=== PATIENT | male | born 1945 | race Caucasian/White ===

== ENCOUNTER 2020-01-20 19:44 | Inpatient (IN) | payer MEDICARE, OTHER ==
[~2020-01-20] VITALS: Ht 172.7 cm; Wt 100.4 kg
[2020-01-21] MEDS ORDERED: PIPERACILLIN-TAZOB 3.375GM 100 ML IV ONE (00:30)
[2020-01-21 01:00] LABS: Eosinophils # (auto) 0.1 10 ^3/uL (0-0.8); Lymphocytes # (auto) 1.5 10 ^3/uL (0.4-5.4); Mean Corpuscular Hemoglobin 29.3 pg (28.0-32.0)
[2020-01-21 01:05] LABS: Basophils # (auto) 0.2 10 ^3/uL (0-0.2); Basophils % (auto) 1.7 % (0.0-2.0); Eosinophils % (auto) 0.9 % (0.0-7.0); Hematocrit 41.7 % (41.0-53.0); Hemoglobin 13.6 g/dL (13.5-17.5); Lymphocytes % (auto) 13.7 % (10.0-50.0); Mean Corpuscular Hgb Conc. 32.6 g/dL (32.0-36.0); Mean Corpuscular Volume 89.8 fL (80.0-100.0); Monocytes # (auto) 0.8 10 ^3/uL (0-1.3); Monocytes % (auto) 6.8 % (0.0-12.0); Neutrophils # (auto) 8.6 10 ^3/uL (1.6-8.6); Neutrophils % (auto) 76.9 % (37.0-80.0); Platelet Count (auto) 110 10^3/uL (140-450); Red Blood Cells 4.64 10^6/uL (4.5-5.90); Red Cell Distribution Width 14.7 % (11.8-14.3); White Blood Cell 11.2 10^3/uL (4.4-10.8)
[2020-01-21 01:16] LABS: Albumin 3.4 g/dL (3.4-5.0); Calcium 9.2 mg/dL (8.5-10.1); Potassium 4.2 mmol/L (3.5-5.1)
[2020-01-21 01:22] LABS: BUN/Creatinine Ratio 14.2; Bilirubin, Total 0.6 mg/dL (0.2-1.0); Total Protein 8.3 g/dL (6.4-8.2)
[2020-01-21 01:43] LABS: INR 1.13 (0.9-1.15); Partial Thromboplastin Time 31.1 sec (23.64-32.05)
[2020-01-21] MEDS ORDERED: HYDROcodone-ACET 5/325MG TAB PO PRN (03:00)
[2020-01-21] MEDS ORDERED: ONDANSETRON HCL 4 MG/2 ML VIAL IV PRN (03:00)
[2020-01-21] MEDS ORDERED: DOCUSATE SOD 100 MG CAP PO PRN (03:00)
[2020-01-21] MEDS ORDERED: ACETAMINOPHEN 325 MG TAB PO PRN (03:00)
[2020-01-21] MEDS ORDERED: DEXTROSE (50%) 50ML SYRG IV PRN (03:00)
[2020-01-21] MEDS ORDERED: MORPHINE SULF INJ 2 MG/ML SYRINGE 1ML IV PRN (03:00)
[2020-01-21] MEDS: ACCU-CHEK COMFORT CURVE STRIP VI SCH ×6 (04:00→23:37)
[2020-01-21] MEDS: InsuLIN REG 1unit/0.01ml Soln (100units/ml) SC SCH ×6 (04:00→23:37)
--- NOTE | 2020-01-21 04:00 | NUR ---
MS admit from ER EMERSON RYDER Whit admitted to tele/MS. No SBAR received. Patient oriented to Michelle Marrero, RN primary RN, unit, room, bed, and unit policies regarding patient care and visiting hours. Patient weighed by bedscale and encouraged to call if they need something. All questions and concerns addressed, patient verbalized understanding. Pt. reports no pain at this time.
[2020-01-21] MEDS ORDERED: METF500S PO (04:56)
[2020-01-21] MEDS ORDERED: ATOR20TA PO (04:56)
[2020-01-21 05:00] VITALS: BP 139/73
[2020-01-21] MEDS: SODIUM CHLORIDE 0.9% 1,000 ML IV SCH ×2 (05:07→20:49)
[2020-01-21] MEDS: CLINDAMYCIN 600MG IV 50 ML IV SCH ×4 (05:08→23:36)
--- NOTE | 2020-01-21 05:17 | NUR ---
Med Rec Patient verbalized that he takes a medication for high blood pressure but he does not remember the name and dose of medication.
[2020-01-21] MEDS ORDERED: PNEUMOCOCCAL VACC POLYS 25 MCG/0.5 ML VIAL IM ONE (05:30)
[2020-01-21 08:00] VITALS: BP 133/61
[2020-01-21 09:00] VITALS: BP 133/61
--- NOTE | 2020-01-21 10:19 | NUR ---
DR. ISRAEL AT BEDSIDE. POC DISCUSSED WITH PT: VASC ARTERIAL ROMERO COMPLETE, CT RIGHT FOOT, PODIATRY CONSULT, DIEGO. PT VERBALIZED AGREEING WITH POC.
[2020-01-21] MEDS ORDERED: VANCOMYCIN 1GM/250ML 250 ML IV ONE (10:30)
[2020-01-21 10:53] LABS: Basophils # (auto) 0.1 10 ^3/uL (0-0.2); Eosinophils # (auto) 0.1 10 ^3/uL (0-0.8); Eosinophils % (auto) 0.8 % (0.0-7.0); Hemoglobin 12.9 g/dL (13.5-17.5); Lymphocytes # (auto) 0.9 10 ^3/uL (0.4-5.4); Lymphocytes % (auto) 14.1 % (10.0-50.0); Mean Corpuscular Hemoglobin 29.5 pg (28.0-32.0); Mean Corpuscular Hgb Conc. 32.9 g/dL (32.0-36.0); Mean Corpuscular Volume 89.5 fL (80.0-100.0); Monocytes # (auto) 0.6 10 ^3/uL (0-1.3); Monocytes % (auto) 8.8 % (0.0-12.0); Neutrophils # (auto) 4.8 10 ^3/uL (1.6-8.6); Neutrophils % (auto) 75.3 % (37.0-80.0); Nucleated Red Blood Cells % 0.1 %; Platelet Count (auto) 92 10^3/uL (140-450); Red Blood Cells 4.36 10^6/uL (4.5-5.90); Red Cell Distribution Width 14.6 % (11.8-14.3); White Blood Cell 6.4 10^3/uL (4.4-10.8)
[2020-01-21 11:19] LABS: Calcium 9.2 mg/dL (8.5-10.1); Potassium 4.3 mmol/L (3.5-5.1)
[2020-01-21 11:28] LABS: BUN/Creatinine Ratio 14.4
[2020-01-21] MEDS: LISINOPRIL 20 MG TAB PO SCH (11:35)
[2020-01-21 13:00] VITALS: BP 108/53
[2020-01-21] MEDS: GABAPENTIN 300 MG CAP PO SCH ×2 (16:33→21:18)
[2020-01-21 17:00] VITALS: BP 110/57
[2020-01-21] MEDS: ATORVASTATIN 20 MG TAB PO SCH (17:43)
--- NOTE | 2020-01-21 19:30 | NUR ---
assumed care, pt. awake, with redness and swelling on rt. lower extremity, no c/o pain, no sob.
[2020-01-21 22:00] VITALS: BP 110/55
--- NOTE | 2020-01-21 23:16 | NUR ---
paged hospitalist re: pt. d-dimer positive, called back no order made
[2020-01-22] MEDS: VANCOMYCIN 1GM/250ML 250 ML IV SCH ×2 (03:57→21:48)
[2020-01-22] MEDS: ACCU-CHEK COMFORT CURVE STRIP VI SCH ×6 (04:11→23:57)
[2020-01-22] MEDS: InsuLIN REG 1unit/0.01ml Soln (100units/ml) SC SCH ×6 (04:11→23:57)
[2020-01-22 05:00] VITALS: BP 115/60
[2020-01-22] MEDS: GABAPENTIN 300 MG CAP PO SCH ×3 (05:32→21:09)
[2020-01-22] MEDS: CLINDAMYCIN 600MG IV 50 ML IV SCH ×4 (05:32→23:33)
[2020-01-22 06:36] LABS: Basophils # (auto) 0 10 ^3/uL (0-0.2); Basophils % (auto) 0.5 % (0.0-2.0); Eosinophils # (auto) 0.1 10 ^3/uL (0-0.8); Eosinophils % (auto) 1.3 % (0.0-7.0); Hematocrit 35.4 % (41.0-53.0); Hemoglobin 11.7 g/dL (13.5-17.5); Lymphocytes % (auto) 16.4 % (10.0-50.0); Mean Corpuscular Hemoglobin 29.4 pg (28.0-32.0); Mean Corpuscular Volume 89.3 fL (80.0-100.0); Monocytes # (auto) 0.6 10 ^3/uL (0-1.3); Monocytes % (auto) 9.6 % (0.0-12.0); Neutrophils # (auto) 4.5 10 ^3/uL (1.6-8.6); Neutrophils % (auto) 72.2 % (37.0-80.0); Platelet Count (auto) 90 10^3/uL (140-450); Red Blood Cells 3.97 10^6/uL (4.5-5.90); Red Cell Distribution Width 14.3 % (11.8-14.3); White Blood Cell 6.2 10^3/uL (4.4-10.8)
--- NOTE | 2020-01-22 07:30 | NUR ---
Opening Shift Note Assumed patient care from [facility] RNClaire. Patient currently resting in bed with eyes closed. Respirations even and unlabored, no signs of distress noted at this time. Safety precautions in place, call light within reach. Will continue to monitor.
--- NOTE | 2020-01-22 08:55 | NUR ---
ASSUMED CARE ASSUMED CARE OF PATIENT FROM OSCAR GALLARDO. PATIENT AWAKE, ALERT, AND ORIENTED. NO S/S OF DISTRESS, SOB, NO C/O PAIN. INSTRUCTED ON POC. BED IN LOWEST/LOCKED POSITION, BED RAILS UP X2, CALL LIGHT WITHIN REACH. WILL CONTINUE TO MONITOR
[2020-01-22 09:00] VITALS: BP 128/63
--- NOTE | 2020-01-22 09:00 | NUR ---
Report Endorsed care to OSCAR Waterman.
[2020-01-22] MEDS: LISINOPRIL 20 MG TAB PO SCH (09:43)
[2020-01-22] MEDS: SODIUM CHLORIDE 0.9% 1,000 ML IV SCH ×3 (09:43→22:31)
--- NOTE | 2020-01-22 10:20 | NUR ---
MD ROUNDS DR Silvano ISRAEL AT BEDSIDE DISCUSSING POC WITH PATIENT. NEW ORDERS RECEIVED/WILL CARRY OUT. WILL CONTINUE TO MONITOR
--- NOTE | 2020-01-22 10:45 | NUR ---
MD ROUNDS DR SANCHEZ AT BEDSIDE DISCUSSING POC WITH PATIENT. NO NEW ORDERS. DR SANCHEZ AWAITING DIAGNOSTIC RESULTS. WILL CONTINUE TO MONITOR
[2020-01-22 13:00] VITALS: BP 127/57
[2020-01-22] MEDS ORDERED: IOHEXOL 350 MG/ML 100ML IJ ONE (13:01)
[2020-01-22 17:00] VITALS: BP 142/68
[2020-01-22] MEDS: ATORVASTATIN 20 MG TAB PO SCH (17:57)
[2020-01-22 21:10] VITALS: BP 139/63
[2020-01-22 22:24] LABS: Urine Bacteria NONE SEEN /hpf (None Seen); Urine Blood Negative /uL (Negative); Urine Specific Gravity 1.024 (1.001-1.035); Urine WBC <1 /hpf (0 - 3)
[2020-01-23] MEDS: InsuLIN REG 1unit/0.01ml Soln (100units/ml) SC SCH ×6 (04:00→23:31)
[2020-01-23] MEDS: ACCU-CHEK COMFORT CURVE STRIP VI SCH ×6 (04:09→23:30)
[2020-01-23 05:00] VITALS: BP 116/52
[2020-01-23] MEDS: SODIUM CHLORIDE 0.9% 1,000 ML IV SCH ×2 (05:02→17:37)
[2020-01-23] MEDS: GABAPENTIN 300 MG CAP PO SCH ×3 (05:30→21:40)
[2020-01-23] MEDS: CLINDAMYCIN 600MG IV 50 ML IV SCH ×4 (05:30→23:30)
[2020-01-23] MEDS ORDERED: LIDOCAINE 2%HCL (LOCAL ANESTH.) INJ 20ML MDV ONE ×2 (07:53→09:31)
[2020-01-23] MEDS ORDERED: IODIXANOL 320MG/ML 100ML BTL IV ONE ×2 (07:53→09:31)
[2020-01-23] MEDS ORDERED: HEPARIN IN NS 1000Units/500mL 0 ML ONE (07:53)
--- NOTE | 2020-01-23 08:00 | NUR ---
Opening Shift Note Assumed patient care from [facility] RNClaire. Patient currently resting in bed with eyes closed. Respirations even and unlabored, no signs of distress noted at this time. Safety precautions in place, call light within reach. Will continue to monitor.
[2020-01-23 08:07] LABS: Basophils # (auto) 0 10 ^3/uL (0-0.2); Basophils % (auto) 0.5 % (0.0-2.0); Eosinophils # (auto) 0.1 10 ^3/uL (0-0.8); Eosinophils % (auto) 2.3 % (0.0-7.0); Hematocrit 35.2 % (41.0-53.0); Hemoglobin 11.6 g/dL (13.5-17.5); Lymphocytes % (auto) 18.7 % (10.0-50.0); Mean Corpuscular Hemoglobin 29.5 pg (28.0-32.0); Mean Corpuscular Hgb Conc. 32.9 g/dL (32.0-36.0); Mean Corpuscular Volume 89.6 fL (80.0-100.0); Monocytes # (auto) 0.6 10 ^3/uL (0-1.3); Monocytes % (auto) 11.7 % (0.0-12.0); Neutrophils # (auto) 3.7 10 ^3/uL (1.6-8.6); Neutrophils % (auto) 66.8 % (37.0-80.0); Nucleated Red Blood Cells % 0.1 %; Platelet Count (auto) 85 10^3/uL (140-450); Red Blood Cells 3.93 10^6/uL (4.5-5.90); Red Cell Distribution Width 14.3 % (11.8-14.3); White Blood Cell 5.5 10^3/uL (4.4-10.8)
--- NOTE | 2020-01-23 08:15 | NUR ---
PHYSICIAN OFFICE NURSE TRANSFERRED VIA HOSPITAL BED. ENDORSED CARE TO PREOP OSCAR CHRISTIANSON. NO DISTRESS NOTED, DENIED PAIN, PATIENT TOLERATED WELL
[2020-01-23 08:18] LABS: Calcium 8.8 mg/dL (8.5-10.1)
[2020-01-23 09:00] VITALS: BP 123/64
[2020-01-23] MEDS ORDERED: ANGIOMAX 250 MG VIAL IV ONE (09:30)
[2020-01-23] MEDS ORDERED: MIDAZOLAM HCL 1MG/1ML-2 ML VIAL ONE ×2 (09:31→10:28)
[2020-01-23] MEDS ORDERED: fentaNYL CITRATE 100 MCG/2 ML VL ONE (09:31)
[2020-01-23] MEDS ORDERED: SODIUM CHL 0.9% 50 ML ONE (09:31)
[2020-01-23] MEDS ORDERED: VERAPAMIL 2.5MG/ML INJ 2ML VIAL IV ONE (09:36)
[2020-01-23] MEDS: ASPirin 81 mg TAB PO SCH (10:00)
[2020-01-23] MEDS ORDERED: ASPirin 81 mg TAB ONE (10:35)
[2020-01-23] MEDS ORDERED: CLOPIDOGREL BISULFATE 75 MG TAB ONE (10:35)
--- NOTE | 2020-01-23 12:30 | NUR ---
RETURNED FROM DISABILITY BENEFITS SPECIALIST PATIENT TOLERATED PERIPHERAL CATH WELL. DRESSING TO LEFT GROIN CLEAN DRY AND INTACT.
[2020-01-23 13:00] VITALS: BP 131/64
[2020-01-23] MEDS: LISINOPRIL 20 MG TAB PO SCH (13:26)
--- NOTE | 2020-01-23 13:30 | NUR ---
UP TIME PATIENT AMBULATED WITH STAND BY ASSIST TO THE RESTROOM. URINATED 100 CC OF CLEAR YELLOW URINE; RETURNED TO THE BED WITHOUT DIFFICULTY. PATIENT TOLERATED WELL, DENIED PAIN. DRESSING CLEAN DRY AND INTACT, SOFT.
--- NOTE | 2020-01-23 14:43 | NUR ---
MRI AWAITING ULTRASOUND TO BE COMPLETED BEDSIDE THEN HARVINDER FROM RADIOLOGY WILL P/U PATIENT FOR MRI.
--- NOTE | 2020-01-23 15:30 | NUR ---
MRI FOOT TRANSPORTED VIA TO HAVE MRI OF THE FOOT. PATIENT DENIED PAIN, DRESSING TO LEFT GROIN SOFT, CLEAN DRY AND INTACT.
[2020-01-23] MEDS: VANCOMYCIN 1GM/250ML 250 ML IV SCH (16:18)
[2020-01-23 17:00] VITALS: BP 151/73
[2020-01-23] MEDS: ATORVASTATIN 20 MG TAB PO SCH (17:36)
--- NOTE | 2020-01-23 18:45 | NUR ---
DIET RESUMED TO [facility] DIETARY NOTIFIED.
--- NOTE | 2020-01-23 19:00 | NUR ---
ENDORSED CARE TO NIGHT RN.
--- NOTE | 2020-01-23 19:35 | NUR ---
Opening Shift Note Patient is AOx4 w/ HOB at 30 degrees. Patient is now on a consistent carb diet and eating dinner at this time. No signs of distress or pain noted at this time. Safety precautions in place, call light within reach. Will continue to monitor.
[2020-01-24] MEDS: ACCU-CHEK COMFORT CURVE STRIP VI SCH ×6 (03:48→23:40)
[2020-01-24] MEDS: InsuLIN REG 1unit/0.01ml Soln (100units/ml) SC SCH ×6 (03:51→23:53)
[2020-01-24] MEDS: SODIUM CHLORIDE 0.9% 1,000 ML IV SCH ×2 (03:54→14:15)
[2020-01-24 05:30] VITALS: BP 134/62
[2020-01-24] MEDS: CLINDAMYCIN 600MG IV 50 ML IV SCH ×4 (05:35→23:55)
[2020-01-24] MEDS: GABAPENTIN 300 MG CAP PO SCH ×3 (05:36→21:46)
--- NOTE | 2020-01-24 07:05 | NUR ---
Endorsed Patient Care to Day Shift RN Patient is AOx4, in bed resting w/ bed locked in lowest position and call light within reach. No s/s of distress, SOB or pain at this time.
--- NOTE | 2020-01-24 07:30 | NUR ---
Opening Shift Note Assumed patient care from [facility] RNClaire. Patient currently resting in bed with eyes closed. Respirations even and unlabored, no signs of distress noted at this time. Safety precautions in place, call light within reach. Will continue to monitor.
[2020-01-24] MEDS: ASPirin 81 mg TAB PO SCH (08:20)
[2020-01-24] MEDS: CLOPIDOGREL BISULFATE 75 MG TAB PO SCH (08:20)
[2020-01-24] MEDS: VANCOMYCIN 1GM/250ML 250 ML IV SCH (08:20)
[2020-01-24] MEDS: LISINOPRIL 20 MG TAB PO SCH (08:23)
[2020-01-24 09:00] VITALS: BP 127/65
--- NOTE | 2020-01-24 11:18 | NUR ---
dr rasheed hoffman bedside new order for PICC line , consents signed and placed in chart.
[2020-01-24 13:00] VITALS: BP 115/60
--- NOTE | 2020-01-24 14:21 | NUR ---
Est energy needs [id number] kcal (25-27 kcal/kg BW 76kg) est protein needs 61-76g (0.8-1g/kg BW 76kg) will reassess prn. Addendum: 01/24/20 at [address] Amended: Links added.
--- NOTE | 2020-01-24 14:47 | NUR ---
DR SZYMANSKI CONSENTS SIGNED FOR RIGHT GREAT TOE AMPUTATION CHECKLIST NEEDS TO BE COMPLETED.
--- NOTE | 2020-01-24 16:30 | NUR ---
PICC LINE RN TIARA INFORMED PICC RN PATIENT HAS NO LINE AND WILL BE GOING FOR SURGERY IN THE MORNING. TIARA IS UNAVAILABLE TO START PICC LINE. SHE STATED SHE WILL TRY TO COME FIRST THING IN THE MORNING. WILL ENDORSE TO NIGHT RN.
[2020-01-24 17:00] VITALS: BP 146/75
[2020-01-24] MEDS: ATORVASTATIN 20 MG TAB PO SCH (18:26)
--- NOTE | 2020-01-24 19:15 | NUR ---
endorsed care to night rn
--- NOTE | 2020-01-24 19:20 | NUR ---
Opening Shift Note Patient is AOx4 w/ HOB at 30 degrees. Patient has his dinner tray at bedside, claims he is "not that hungry.". No signs of distress or pain noted at this time. Safety precautions in place, call light within reach. Will continue to monitor.
[2020-01-24 22:00] VITALS: BP 140/68
--- NOTE | 2020-01-24 23:50 | NUR ---
PATIENT UNSTEADY GAIT TALENT DEVELOPMENT COORDINATOR IN ROOM AT THE TIME AND CALLED. TALENT DEVELOPMENT COORDINATOR SAID PATIENT HAD LOST HIS BALANCE TRYING TO SIT IN BED AMBULATING FROM BATHROOM AND FELL ONTO MATTRESS. UPON ENTERING PATIENT'S ROOM PATIENT WAS SITTING UP IN BED WITH TALENT DEVELOPMENT COORDINATOR PRESENT AND PATIENT SAID, "I LOST MY BALANCE TRYING TO SIT DOWN." HIS BODY WAS ON BED WITH NO INJURIES PRESENT OR NOTED, PATIENT DENIES PAIN OR ANY INJURIES. PATIENT AOX4 AND TOLD TO CALL NURSE TO BE SURE HE DOESN'T LOSE HIS BALANCE AND HURT HIMSELF. PATIENT IS AWARE, HE VERBALLY AGREED TO CALL, AND BED ALARM IS ON FOR SAFETY MEASURES. WILL CONTINUE TO MONITOR.
--- NOTE | 2020-01-25 | NUR ---
IV insertion FOR ANTIBIOTIC ADMINISTRATION IV access obtained, via clean sterile technique by inserting 20 gauge catheter at left wrist after 1 attempt. IV secured properly. No trauma to site. Patient tolerated procedure well.
[2020-01-25] MEDS: SODIUM CHLORIDE 0.9% 1,000 ML IV SCH ×3 (00:07→22:02)
[2020-01-25] MEDS: VANCOMYCIN 1GM/250ML 250 ML IV SCH ×2 (03:52→22:00)
[2020-01-25] MEDS: InsuLIN REG 1unit/0.01ml Soln (100units/ml) SC SCH ×5 (03:57→20:28)
[2020-01-25] MEDS: ACCU-CHEK COMFORT CURVE STRIP VI SCH ×5 (04:11→20:23)
[2020-01-25 05:00] VITALS: BP 126/57
[2020-01-25] MEDS: CLINDAMYCIN 600MG IV 50 ML IV SCH ×3 (05:33→17:33)
[2020-01-25] MEDS: GABAPENTIN 300 MG CAP PO SCH ×3 (05:33→22:01)
[2020-01-25 06:59] LABS: Basophils # (auto) 0 10 ^3/uL (0-0.2); Basophils % (auto) 0.5 % (0.0-2.0); Eosinophils # (auto) 0.1 10 ^3/uL (0-0.8); Eosinophils % (auto) 0.8 % (0.0-7.0); Hematocrit 35.8 % (41.0-53.0); Hemoglobin 11.8 g/dL (13.5-17.5); Lymphocytes # (auto) 0.8 10 ^3/uL (0.4-5.4); Mean Corpuscular Hemoglobin 29.4 pg (28.0-32.0); Mean Corpuscular Hgb Conc. 32.9 g/dL (32.0-36.0); Mean Corpuscular Volume 89.3 fL (80.0-100.0); Monocytes # (auto) 0.7 10 ^3/uL (0-1.3); Monocytes % (auto) 10.3 % (0.0-12.0); Neutrophils # (auto) 5.1 10 ^3/uL (1.6-8.6); Neutrophils % (auto) 76.4 % (37.0-80.0); Nucleated Red Blood Cells % 0.1 %; Platelet Count (auto) 104 10^3/uL (140-450); Red Blood Cells 4.01 10^6/uL (4.5-5.90); Red Cell Distribution Width 14.8 % (11.8-14.3); White Blood Cell 6.6 10^3/uL (4.4-10.8)
--- NOTE | 2020-01-25 07:00 | NUR ---
ENDORSED PATIENT CARE TO MORNING SHIFT RN.
[2020-01-25 07:18] LABS: INR 1.3 (0.9-1.15)
--- NOTE | 2020-01-25 07:30 | NUR ---
Opening Shift Note Assumed patient care from Sophia ESPINO RN. Patient currently resting in bed with eyes closed. Respirations even and unlabored, no signs of distress noted at this time. Safety precautions in place, call light within reach. PAtient scheduled for surgery with Dr Castillo.Will continue to monitor.
[2020-01-25 07:31] LABS: Albumin 2.5 g/dL (3.4-5.0); BUN/Creatinine Ratio 9.7; Calcium 8.6 mg/dL (8.5-10.1); Potassium 3.7 mmol/L (3.5-5.1)
[2020-01-25 07:34] LABS: Bilirubin, Total 0.9 mg/dL (0.2-1.0); Total Protein 7.1 g/dL (6.4-8.2)
--- NOTE | 2020-01-25 08:45 | NUR ---
PICC line placed by Ariane MOORE. Patient tolerated well.
[2020-01-25 08:52] VITALS: BP 123/58
--- NOTE | 2020-01-25 09:00 | NUR ---
PICC line placement Patient educated on need for PICC line placement. All risks and benefits explained and all questions and concerns addressed prior to procedure. Noted past medical history and allergies with no contraindications. INR and Plt counts within acceptable range. 4 fr PICC line inserted via /right brachial vein using [employer] US and Tip Location System. Sterile technique with maximum barrier precautions utilized. Blood return obtained from lumen and flushed easily with NS using proper technique. PICC secured with Stat-lock; biodisc and occlusive dressing applied. Stat portable chest x-ray obtained for PICC tip placement. *Baseline Arm Circumference 29 cm. Internal length 46 cm. External length 0 cm. PICC lot # [id number] Addendum: 01/25/20 at 0928 by TIARA APONTE RN PICC line was retracted 2 cm. Internal length 44 cm. External length 2 cm. Total PICC line length remains 46 cm.
[2020-01-25] MEDS ORDERED: LIDOCAINE 1% (LOCAL ANESTH.) PF 5ml SDV ID ONE (09:15)
--- NOTE | 2020-01-25 09:21 | NUR ---
Okay to use PICC line Xray completed and reviewed. Okay to use PICC line. Eduardo MOORE notified.
--- NOTE | 2020-01-25 09:38 | NUR ---
transported to procedure via hospital bed. endorsed care to preop RN . patient tolerated well.
[2020-01-25] MEDS ORDERED: ceFAZolin 1GM VL ONE (10:24)
[2020-01-25] MEDS ORDERED: MIDAZOLAM HCL 1MG/1ML-2 ML VIAL ONE (10:44)
[2020-01-25] MEDS ORDERED: fentaNYL CITRATE 100 MCG/2 ML VL ONE (10:44)
[2020-01-25] MEDS ORDERED: SODIUM CHLORIDE LOCK 10 ML ONE (10:44)
[2020-01-25] MEDS ORDERED: PROPOFOL 10 MG/ML 20 ML IV ONE (10:44)
[2020-01-25] MEDS ORDERED: ONDANSETRON HCL 4 MG/2 ML VIAL ONE (10:44)
[2020-01-25] MEDS ORDERED: ceFAZolin 1GM/50ML 50 ML IV ONE (10:46)
--- NOTE | 2020-01-25 12:11 | NUR ---
RETURNED FROM OPERATION. PATIENT AWAKE, DENIED PAIN. DRESSING TO RIGHT FOOT CLEAN DRY AND INTACT WITH A BOOT.
[2020-01-25 13:00] VITALS: BP 121/60
[2020-01-25] MEDS: SODIUM CHLOR 0.9% PF (SALINE LOCK) 10ML VIAL/SYR IV SCH ×2 (14:58→22:01)
[2020-01-25] MEDS: CLOPIDOGREL BISULFATE 75 MG TAB PO SCH (14:58)
[2020-01-25] MEDS: ASPirin 81 mg TAB PO SCH (14:58)
[2020-01-25] MEDS: LISINOPRIL 20 MG TAB PO SCH (14:59)
--- NOTE | 2020-01-25 16:00 | NUR ---
PO MEDICATIONS GIVEN LATE DUE TO PATIENT OFF THE UNIT, PATIENT SWALLOWED PILLS WITHOUT DIFFICULTY.
--- NOTE | 2020-01-25 17:04 | NUR ---
FAMILY HOMAR PATIENTS DAUGHTER PROVIDED PASS WORD AND WAS UPDATED BY TELEPHONE.SHE VERBALIZED HER GRATITUDE.
[2020-01-25] MEDS: ATORVASTATIN 20 MG TAB PO SCH (17:33)
[2020-01-25 17:34] VITALS: BP 118/64
--- NOTE | 2020-01-25 18:57 | NUR ---
ENDORSED CARE TO NIGHT RN
--- NOTE | 2020-01-25 18:57 | NUR ---
ATE 100% OF DINNER
--- NOTE | 2020-01-25 19:20 | NUR ---
Opening Shift Note Assumed care of patient, awake and alert. No S/S of distress/SOB or pain. Right toe dressing intact. Capillary refill in second toe <3 seconds. Pt states no pain at incision site. Pt expressed desire to ambulate. Pt was advised to stay in bed due to his post op status and was advised to wait until cleared for activity from surgeon. Pt verbalized understanding. Safety measures in place, bed in lowest position, bed rails raised x2, call light within reach. Instructed on POC and to call for assist PRN, will continue to monitor for changes Q1hr and PRN.
--- NOTE | 2020-01-25 20:00 | NUR ---
ANGIOPLASTY SITE ASSESSED, LEFT GROIN ACCESS SITE OPEN TO AIR. NO S/S OF INFECTION, PAIN OR DRAINAGE. WILL CONTINUE TO MONITOR.
[2020-01-25 22:00] VITALS: BP 133/47
[2020-01-26] MEDS: ACCU-CHEK COMFORT CURVE STRIP VI SCH ×5 (00:02→17:18)
[2020-01-26] MEDS: CLINDAMYCIN 600MG IV 50 ML IV SCH ×2 (00:02→05:32)
[2020-01-26] MEDS: InsuLIN REG 1unit/0.01ml Soln (100units/ml) SC SCH ×5 (00:14→17:20)
[2020-01-26 05:00] VITALS: BP 137/68
[2020-01-26] MEDS: GABAPENTIN 300 MG CAP PO SCH ×2 (05:32→14:42)
[2020-01-26 09:00] VITALS: BP 108/85
[2020-01-26] MEDS: CLOPIDOGREL BISULFATE 75 MG TAB PO SCH (09:03)
[2020-01-26] MEDS: SODIUM CHLOR 0.9% PF (SALINE LOCK) 10ML VIAL/SYR IV SCH (09:03)
[2020-01-26] MEDS: ASPirin 81 mg TAB PO SCH (09:03)
[2020-01-26] MEDS: SODIUM CHLORIDE 0.9% 1,000 ML IV SCH ×2 (09:05→17:18)
[2020-01-26] MEDS: LISINOPRIL 20 MG TAB PO SCH (09:05)
[2020-01-26 09:22] LABS: BUN/Creatinine Ratio 11.6; Calcium 8.3 mg/dL (8.5-10.1); Potassium 3.9 mmol/L (3.5-5.1)
[2020-01-26] MEDS ORDERED: VANCOMYCIN 1GM/250ML 250 ML IV SCH (12:00)
--- NOTE | 2020-01-26 12:32 | NUR ---
Contacted by sister, [place] Kasia( [phone]) regarding pt Tye Guzman. Per sister she has spoken with pt and discussed the care /assistance that he needs which could be provided by hospice. States that pt is now in agreeance with hospice and will accept services. Sister states she will be assisting pt in the home but is currently moving. Pts spouse passed 3 years ago and he does not sleep in the bed or go in the bedroom. He has been sleeping on the sofa. Sister states she will not have any help with moving the sofa to make room for the hospital bed until later in the weekend. Advised sister that pt will need to confirm with SS that hes in agreeance with hospice and that if pt is stable for discharge on hospice he could not stay through the weekend. Pt is currently on 8lpm and will need to have his oxygen decreased prior to discharge. Advised sister that hospice can be arranged within hours and that once his oxygen needs are improved he could be discharged. Sister stated she would see if her son will be back in town by tomorrow evening or Thursday morning to help with the moving if pt discharged. Will notify Arlyn to confirm with pt and to contact [facility] if pt agrees. Sister is also requesting that Dr. Ku contact her. Addendum: 01/26/20 at 1428 by BASSAM MARLEY WRONG PATIENT!!!!!!!
--- NOTE | 2020-01-26 15:18 | NUR ---
CORRECT NOTE: SS consutl for IV ABX therapy. Pt resides with his son Guillermo and will be returning upon discharge. Confirmed with patient that he was not on home health services and had no preference. Contacted [facility] ([phone])and [facility] [employer] ([phone]) for IV abx therapy. Clinical information faxed over and pt accepted onto service. [facility] notified by [facility] and will start nursing services on tomorrow after discharge. [facility] infusion to contact son and pt regarding address confirmation and delivery time. Pt is set for discharge today.
[2020-01-26 17:00] VITALS: BP 134/65
[2020-01-26] MEDS: ATORVASTATIN 20 MG TAB PO SCH (17:18)
--- NOTE | 2020-01-26 18:00 | NUR ---
Discharge instructions given as ordered. Encourage to follow up with PMD IN 1-2 WEEKS, F/U WITH DR. SANCHEZ AND DR. PULLIAM IN 1-2 WEEKS as instructed. All questions and concerns addressed. Patient verbalized understanding. Medication reconciliation form completed and copy given to patient. Patient taken to vehicle via wheelchair with all personal belongings, accompanied by staff and family member. No distress noted at time of departure.
== END 2020-01-26 18:00 | disposition home health service (06) | DRG 253 ==
LOC: ER 19:44 → OVERFLOW 19:45 → WEST WING 01-21 03:49 → TELE-WESTW 01-23 11:31 → WEST WING 01-23 11:41
PROVIDERS: ADMIT Hospitalist; ATTEND Family Medicine
PROC: 047K3ZZ Dilation of Right Femoral Artery, Percutaneous Approach (ICD-10-PCS; 2020-01-23)
PROC: 047M3ZZ Dilation of Right Popliteal Artery, Percutaneous Approach (ICD-10-PCS; 2020-01-23)
PROC: B41GYZZ Fluoroscopy of Left Lower Extremity Arteries using Other Contrast (ICD-10-PCS; 2020-01-23)
PROC: B41FYZZ Fluoroscopy of Right Lower Extremity Arteries using Other Contrast (ICD-10-PCS; 2020-01-23)
PROC: 02HV33Z Insertion of Infusion Device into Superior Vena Cava, Percutaneous Approach (ICD-10-PCS; 2020-01-25)
PROC: B548ZZA Ultrasonography of Superior Vena Cava, Guidance (ICD-10-PCS; 2020-01-25)
PROC: 0Y6P0Z0 Detachment at Right 1st Toe, Complete, Open Approach (ICD-10-PCS; principal; 2020-01-25 10:53)
DX: E11.52 Type 2 diabetes mellitus with diabetic peripheral angiopathy with gangrene (principal); L03.115 Cellulitis of right lower limb; M86.171 Other acute osteomyelitis, right ankle and foot; I96 Gangrene, not elsewhere classified; E11.69 Type 2 diabetes mellitus with other specified complication; E78.5 Hyperlipidemia, unspecified; I10 Essential (primary) hypertension; L03.031 Cellulitis of right toe; E11.65 Type 2 diabetes mellitus with hyperglycemia; E11.621 Type 2 diabetes mellitus with foot ulcer; Z89.421 Acquired absence of other right toe(s); Z89.411 Acquired absence of right great toe; Z86.39 Personal history of other endocrine, nutritional and metabolic disease; Z79.4 Long term (current) use of insulin; R79.89 Other specified abnormal findings of blood chemistry; L97.512 Non-pressure chronic ulcer of other part of right foot with fat layer exposed; B95.61 Methicillin susceptible Staphylococcus aureus infection as the cause of diseases classified elsewhere
CPT/HCPCS: 36415; 36569; 37224; 70450; 71045; 71275; 73700; 73718; 75716; 80048; 80053; 80061; 80202; 81001; 82140; 82565; 82962; 83036; 83615; 84443; 85025; 85379; 85610; 85730; 87040; 87077; 87186; 87205; 93005; 93306; 93925; 93971; 99152; 99153; G0378; J0690; J1815; J2250; J2405; J2543; J2704; J3490; Q9967

== ENCOUNTER → 2020-02-21 | Outpatient (CLI) | payer MEDICARE ==
[~2020-02-21] MED LIST: ATOR20TA PO; METF500S PO
[2020-02-21 09:58] LABS: Basophils # (auto) 0 10 ^3/uL (0-0.2); Basophils % (auto) 0.5 % (0.0-2.0); Eosinophils # (auto) 0.1 10 ^3/uL (0-0.8); Eosinophils % (auto) 3.1 % (0.0-7.0); Hematocrit 33.6 % (41.0-53.0); Hemoglobin 10.8 g/dL (13.5-17.5); Lymphocytes # (auto) 0.8 10 ^3/uL (0.4-5.4); Lymphocytes % (auto) 16.7 % (10.0-50.0); Mean Corpuscular Hgb Conc. 32.3 g/dL (32.0-36.0); Mean Corpuscular Volume 86.8 fL (80.0-100.0); Monocytes # (auto) 0.4 10 ^3/uL (0-1.3); Monocytes % (auto) 8.8 % (0.0-12.0); Neutrophils # (auto) 3.3 10 ^3/uL (1.6-8.6); Neutrophils % (auto) 70.9 % (37.0-80.0); Platelet Count (auto) 108 10^3/uL (140-450); Red Blood Cells 3.88 10^6/uL (4.5-5.90); Red Cell Distribution Width 14.1 % (11.8-14.3); White Blood Cell 4.7 10^3/uL (4.4-10.8)
[2020-02-21 10:34] LABS: INR 1.17 (0.9-1.15); Partial Thromboplastin Time 30.7 sec (23.0-31.2)
[2020-02-21 10:35] LABS: Calcium 9.5 mg/dL (8.5-10.1); Potassium 4.3 mmol/L (3.5-5.1)
[2020-02-21 10:48] LABS: BUN/Creatinine Ratio 13.2; Bilirubin, Total 0.6 mg/dL (0.2-1.0); CRP High Sensitivity 1.9 mg/dL (< 0.3)
== END | disposition home or self-care (01) ==
LOC: LAB 09:24
PROVIDERS: ATTEND Internal Medicine
DX: I10 Essential (primary) hypertension (principal); E78.5 Hyperlipidemia, unspecified; E03.9 Hypothyroidism, unspecified; M85.80 Other specified disorders of bone density and structure, unspecified site; R73.03 Prediabetes; R07.9 Chest pain, unspecified
CPT/HCPCS: 36415; 80053; 80061; 82306; 83036; 84443; 85025; 85610; 85652; 85730; 86141

== ENCOUNTER → 2020-04-14 | Outpatient (CLI) | payer MEDICARE ==
[2020-04-14 10:50] LABS: Albumin 3.7 g/dL (3.4-5.0); Calcium 9.1 mg/dL (8.5-10.1); Potassium 4.3 mmol/L (3.5-5.1)
[2020-04-14 10:53] LABS: BUN/Creatinine Ratio 13.4; Bilirubin, Total 0.4 mg/dL (0.2-1.0)
[2020-04-14 11:09] LABS: % Iron Saturation 19.9 % (20-55)
[2020-04-16 09:39] LABS: Free T4 (Free Thyroxine) 0.75 ng/dL (0.89-1.76)
== END | disposition home or self-care (01) ==
LOC: LAB 10:15
PROVIDERS: ATTEND Internal Medicine
DX: E11.22 Type 2 diabetes mellitus with diabetic chronic kidney disease (principal); N18.9 Chronic kidney disease, unspecified; E03.9 Hypothyroidism, unspecified
CPT/HCPCS: 36415; 80053; 82607; 82746; 83036; 83540; 83550; 84439; 84443; 85045

== ENCOUNTER → 2020-06-04 | Outpatient (CLI) | payer MEDICARE ==
[2020-06-04 13:18] LABS: Basophils # (auto) 0 10 ^3/uL (0-0.2); Basophils % (auto) 0.6 % (0.0-2.0); Eosinophils # (auto) 0.1 10 ^3/uL (0-0.8); Eosinophils % (auto) 1.8 % (0.0-7.0); Hematocrit 35.3 % (41.0-53.0); Hemoglobin 11.6 g/dL (13.5-17.5); Lymphocytes # (auto) 1.3 10 ^3/uL (0.4-5.4); Lymphocytes % (auto) 18.5 % (10.0-50.0); Mean Corpuscular Hgb Conc. 32.8 g/dL (32.0-36.0); Mean Corpuscular Volume 91.4 fL (80.0-100.0); Monocytes # (auto) 0.5 10 ^3/uL (0-1.3); Neutrophils # (auto) 5.1 10 ^3/uL (1.6-8.6); Neutrophils % (auto) 72.1 % (37.0-80.0); Platelet Count (auto) 97 10^3/uL (140-450); Red Blood Cells 3.86 10^6/uL (4.5-5.90); Red Cell Distribution Width 14.3 % (11.8-14.3)
[2020-06-04 13:43] LABS: Albumin 3.1 g/dL (3.4-5.0); Calcium 8.9 mg/dL (8.5-10.1); Potassium 4.2 mmol/L (3.5-5.1)
[2020-06-04 13:48] LABS: BUN/Creatinine Ratio 9.2; Bilirubin, Total 0.5 mg/dL (0.2-1.0); Total Protein 7.4 g/dL (6.4-8.2)
[2020-06-05 13:06] LABS: Urine Bacteria NONE SEEN /hpf (None Seen); Urine Blood Negative /uL (Negative); Urine Specific Gravity 1.012 (1.001-1.035); Urine WBC None Seen /hpf (0 - 3)
== END | disposition home or self-care (01) ==
LOC: LAB 12:59
PROVIDERS: ATTEND Internal Medicine
DX: E03.9 Hypothyroidism, unspecified (principal)
CPT/HCPCS: 36415; 80053; 81001; 82043; 84443; 84480; 85025

== ENCOUNTER → 2020-08-22 | Outpatient (CLI) | payer MEDICARE ==
[2020-08-22 14:15] LABS: Albumin 3.1 g/dL (3.4-5.0); Calcium 8.7 mg/dL (8.5-10.1); Potassium 4.3 mmol/L (3.5-5.1)
[2020-08-22 14:19] LABS: BUN/Creatinine Ratio 12.9; Bilirubin, Total 0.7 mg/dL (0.2-1.0); Total Protein 7.3 g/dL (6.4-8.2)
== END | disposition home or self-care (01) ==
LOC: LAB 13:02
PROVIDERS: ATTEND Internal Medicine
DX: E11.22 Type 2 diabetes mellitus with diabetic chronic kidney disease (principal); N18.9 Chronic kidney disease, unspecified
CPT/HCPCS: 36415; 80053; 80061; 83036

== ENCOUNTER → 2020-11-29 | Outpatient (CLI) | payer MEDICARE, OTHER ==
[2020-11-29 11:01] LABS: Basophils # (auto) 0.1 10 ^3/uL (0-0.2); Basophils % (auto) 1.3 % (0.0-2.0); Eosinophils # (auto) 0.1 10 ^3/uL (0-0.8); Eosinophils % (auto) 1.9 % (0.0-7.0); Hematocrit 36.9 % (41.0-53.0); Hemoglobin 12.7 g/dL (13.5-17.5); Lymphocytes # (auto) 1.3 10 ^3/uL (0.4-5.4); Lymphocytes % (auto) 18.4 % (10.0-50.0); Mean Corpuscular Hemoglobin 32.8 pg (28.0-32.0); Mean Corpuscular Hgb Conc. 34.4 g/dL (32.0-36.0); Mean Corpuscular Volume 95.5 fL (80.0-100.0); Monocytes # (auto) 0.4 10 ^3/uL (0-1.3); Monocytes % (auto) 6.2 % (0.0-12.0); Neutrophils # (auto) 5.2 10 ^3/uL (1.6-8.6); Neutrophils % (auto) 72.2 % (37.0-80.0); Nucleated Red Blood Cells % 0.1 %; Platelet Count (auto) 96 10^3/uL (140-450); Red Blood Cells 3.86 10^6/uL (4.5-5.90); Red Cell Distribution Width 13.6 % (11.8-14.3); White Blood Cell 7.2 10^3/uL (4.4-10.8)
[2020-11-29 11:46] LABS: BUN/Creatinine Ratio 15.4; Potassium 4.7 mmol/L (3.5-5.1)
== END | disposition home or self-care (01) ==
LOC: LAB 10:39
PROVIDERS: ATTEND Internal Medicine
DX: E11.22 Type 2 diabetes mellitus with diabetic chronic kidney disease (principal); N18.9 Chronic kidney disease, unspecified; E03.9 Hypothyroidism, unspecified
CPT/HCPCS: 36415; 80048; 83036; 84439; 84443; 85025

== ENCOUNTER 2021-06-25 12:35 | Emergency (ER) | payer MEDICARE, OTHER ==
[~2021-06-25] VITALS: Ht 177.8 cm; Wt 102.1 kg
[2021-06-25 14:03] LABS: Basophils # (auto) 0.1 10 ^3/uL (0-0.2); Basophils % (auto) 0.9 % (0.0-2.0); Eosinophils # (auto) 0.1 10 ^3/uL (0-0.8); Eosinophils % (auto) 1.7 % (0.0-7.0); Hematocrit 37.3 % (41.0-53.0); Hemoglobin 12.5 g/dL (13.5-17.5); Lymphocytes # (auto) 1.1 10 ^3/uL (0.4-5.4); Lymphocytes % (auto) 16.4 % (10.0-50.0); Mean Corpuscular Hemoglobin 33.3 pg (28.0-32.0); Mean Corpuscular Hgb Conc. 33.5 g/dL (32.0-36.0); Mean Corpuscular Volume 99.1 fL (80.0-100.0); Monocytes # (auto) 0.4 10 ^3/uL (0-1.3); Monocytes % (auto) 6.6 % (0.0-12.0); Neutrophils # (auto) 4.9 10 ^3/uL (1.6-8.6); Neutrophils % (auto) 74.4 % (37.0-80.0); Nucleated Red Blood Cells % 0.2 %; Red Blood Cells 3.76 10^6/uL (4.5-5.90); Red Cell Distribution Width 13.2 % (11.8-14.3); White Blood Cell 6.5 10^3/uL (4.4-10.8)
[2021-06-25 14:09] VITALS: BP 161/63
[2021-06-25 14:18] LABS: INR 1.1 (0.9-1.15); Partial Thromboplastin Time 28.2 sec (23.6-33.0)
[2021-06-25 14:29] LABS: Albumin 3.1 g/dL (3.4-5.0); Potassium 4.6 mmol/L (3.5-5.1)
[2021-06-25 14:35] LABS: Bilirubin, Total 0.4 mg/dL (0.2-1.0); Total Protein 7.2 g/dL (6.4-8.2)
== END 2021-06-25 14:56 | disposition left against medical advice (07) ==
LOC: ER 12:35
DX: L03.116 Cellulitis of left lower limb (principal); E11.9 Type 2 diabetes mellitus without complications; E78.5 Hyperlipidemia, unspecified; I10 Essential (primary) hypertension
CPT/HCPCS: 36415; 71045; 80053; 84484; 85025; 85610; 85730